=== PATIENT | female | born 1985 | race Caucasian/White ===

== ENCOUNTER 2016-08-23 07:39 | Emergency (ER) | payer OTHER ==
[2016-08-23 07:47] VITALS: RESP 16
--- NOTE | 2016-08-23 08:01 | EDPHY ---
HPI/HX/ROS/PE/MDM Narrative: CHIEF COMPLAINT: Left flank pain, abdominal pain HPI: This patient is a 30 year old female status 1.5 weeks post cystoscopy for left-sided kidney stone removal who presents to the Emergency Department complaining of left flank pain and generalized abdominal pain beginning last night and worsening over time. She has a history of multiple kidney stones with two prior cystoscopies without complication. She reports that she had been healing appropriately following the procedure until onset of pain last night. She also reports that she "doesn't feel normal" and complains of associated facial and abdominal swelling. She is able to urinate but with less urinary output than is typical for her. She denies dysuria, fever or chills, vomiting or diarrhea. She has no additional complaints. REVIEW OF SYSTEMS: Aside from elements discussed in the HPI, a comprehensive 10-point review of systems was reviewed and is negative. PMH: Kidney stones (most recent cystoscopy 08/12), pyelonephritis, uterine fibroids, ovarian cysts SOCIAL HISTORY: Lives in [place], works as a equipment mechanic in [place] PHYSICAL EXAM: General:Patient is alert, in no acute distress. ENT:Eyes are normal to inspection. ENT inspection normal. Mild facial swelling. Neck: Normal inspection. Full range of motion. Respiratory:No respiratory distress. Breath sounds normal bilaterally. Cardiovascular: Regular rate and rhythm. Strong peripheral pulses. Normal cap refill. Abdomen:Diffuse mild tenderness to palpation. There are no peritoneal signs. There are normal bowel sounds. Back: Left flank tenderness to palpation. Skin: Normal color. No rash. Warm and dry. Extremities: Normal appearance. Full range of motion. Neuro: Oriented x3. Normal motor function. Normal sensory function. ED Course: This 30-year-old female status 1.5 weeks post-cystoscopy for left-sided kidney stone presents with acute onset left flank pain with abdominal and facial swelling beginning last night. She had been healing appropriately following the procedure before onset of symptoms. She denies fever and is afebrile upon presentation. Notable on her exam is mild facial swelling, diffuse abdominal tenderness, and left flank tenderness to palpation. Will proceed with labs and UA prior to considering a CT of the abdomen and pelvis. UA results reviewed and are normal. There is no evidence of UTI. Labs reviewed and are unremarkable. I recommended that we proceed with CT of the abdomen and pelvis given recent urologic surgery. The patient refuses CT as she has an appointment with her urologist this afternoon and will undergo imaging at that time. I discussed with her customary return precautions to which she expresses understanding. She will be discharged home in good condition. - Data Points Laboratory Results: Laboratory Results 08/23/16 08:38 08/23/16 08:30 08/23/16 08/23/16 08/23/16 08:38 08:30 07:55 WBC 5.89 10^3/uL 10^3/uL (3.80-9.50) RBC 4.48 10^6/uL 10^6/uL (4.18-5.33) Hgb 12.6 g/dL g/dL (12.6-16.3) Hct 40.1 % % (38.0-47.0) MCV 89.5 fL fL (81.5-99.8) MCH 28.1 pg pg (27.9-34.1) MCHC 31.4 g/dL L g/dL (32.4-36.7) RDW 15.9 % H % (11.5-15.2) Plt Count 331 10^3/uL 10^3/uL (150-400) MPV 10.2 fL fL (8.7-11.7) Neut % (Auto) 64.7 % % (39.3-74.2) Lymph % (Auto) 20.9 % % (15.0-45.0) Alfalfa % (Auto) 9.5 % % (4.5-13.0) Eos % (Auto) 2.9 % % (0.6-7.6) Baso % (Auto) 1.7 % % (0.3-1.7) Nucleat RBC Rel Count 0.0 % % (0.0-0.2) Absolute Neuts (auto) 3.81 10^3/uL 10^3/uL (1.70-6.50) Absolute Lymphs (auto) 1.23 10^3/uL 10^3/uL (1.00-3.00) Absolute Monos (auto) 0.56 10^3/uL 10^3/uL (0.30-0.80) Absolute Eos (auto) 0.17 10^3/uL 10^3/uL (0.03-0.40) Absolute Basos (auto) 0.10 10^3/uL 10^3/uL (0.02-0.10) Absolute Nucleated RBC 0.00 10^3/uL 10^3/uL (0-0.01) Immature Gran % 0.3 % % (0.0-1.1) Immature Gran # 0.02 10^3/uL 10^3/uL (0.00-0.10) Sodium 143 mEq/L mEq/L (134-144) Potassium 5.3 mEq/L H mEq/L (3.5-5.2) Chloride 111 mEq/L H mEq/L (97-110) Carbon Dioxide 24 mEq/l mEq/l (22-31) Anion Gap 8 mEq/L mEq/L (8-16) BUN 12 mg/dL mg/dL (7-23) Creatinine 0.8 mg/dL mg/dL (0.6-1.0) Estimated GFR > 60 Glucose 84 mg/dL mg/dL (70-100) Calcium 8.8 mg/dL mg/dL (8.5-10.4) Total Bilirubin 1.1 mg/dL mg/dL (0.1-1.4) Conjugated Bilirubin 0.9 mg/dL H mg/dL (0.0-0.5) Unconjugated Bilirubin 0.2 mg/dL mg/dL (0.0-1.1) AST 52 IU/L H IU/L (14-46) ALT 16 IU/L IU/L (9-52) Alkaline Phosphatase 45 IU/L IU/L (38-126) Total Protein 6.9 g/dL g/dL (6.3-8.2) Albumin 4.1 g/dL g/dL (3.5-5.0) Specimen Hemolysis 168 Urine Color YELLOW Urine Appearance HAZY Urine pH 5.0 (5.0-7.5) Ur Specific [place] 1.023 (1.002-1.030) Urine Protein NEGATIVE (NEGATIVE) Urine Ketones NEGATIVE (NEGATIVE) Urine Blood NEGATIVE (NEGATIVE) Urine Nitrate NEGATIVE (NEGATIVE) Urine Bilirubin NEGATIVE (NEGATIVE) Urine Urobilinogen NEGATIVE EU EU (0.2-1.0) Ur Leukocyte Esterase NEGATIVE (NEGATIVE) Urine Glucose NEGATIVE (NEGATIVE) General Initial Vital Signs: Initial Vital Signs Temperature (C) 36.6 C 08/23/16 07:40 Heart Rate 89 08/23/16 07:40 Respiratory Rate 16 08/23/16 07:40 Blood Pressure 138/89 H 08/23/16 07:40 O2 Sat (%) 99 08/23/16 07:40 O2 Delivery Mode Room Air Allergies/Adverse Reactions: No Known Allergies Allergy (Verified 08/23/16 07:47) Home Medications: Medication Instructions Recorded methYLPHENIDATE HCL [Ritalin 10mg 10 mg PO 08/23/16 (*)] Departure - Departure Disposition: Home, Routine, Self-Care Clinical Impression: Facial swelling Abdominal pain Qualifiers: Abdominal location: generalized Qualified Code(s): R10.84 - Generalized abdominal pain Condition: Good Instructions: Abdominal Pain (ED), Flank Pain (ED) Additional Instructions: 1. Attend your appointment with your urologist this afternoon as scheduled. 2. Return to the Emergency Department if you experience high fever, severe abdominal pain, blood in urine, urinary incontinence, or any other serious concerns. Referrals: Brenda Jean PA [Primary Care Provider] - As per Instructions Physician Review and Approval Statement: Portions of this note were transcribed by an ED scribe. I personally performed the history, physical exam, and medical decision making; and confirm the accuracy of the information in the transcribed note.
[2016-08-23 08:10] LABS: COLOR YELLOW; LEUKOCYTE ESTERASE,URINE NEGATIVE (NEGATIVE); NITRITE,URINE NEGATIVE (NEGATIVE)
[2016-08-23 08:46] LABS: % IMMATURE GRANULYOCYTES 0.3 % (0.0-1.1); ABSOLUTE IMMATURE GRANULOCYTES 0.02 10^3/uL (0.00-0.10); ADD DIFF? NO; ADD MORPH? NO; ADD SCAN? NO; ATYPICAL LYMPHOCYTE FLAG 20 (0-99); FRAGMENT RBC FLAG 0 (0-99); HEMATOCRIT 40.1 % (38.0-47.0); HEMOGLOBIN 12.6 g/dL (12.6-16.3); LEFT SHIFT FLG 0 (0-99); LIPEMIA HEMOLYSIS FLAG 80 (0-99); MEAN CELL HEMOGLOBIN 28.1 pg (27.9-34.1); MEAN CELL HEMOGLOBIN CONCENTR. 31.4 g/dL (32.4-36.7); MEAN CELL VOLUME 89.5 fL (81.5-99.8); MEAN PLATELET VOLUME 10.2 fL (8.7-11.7); PLATELET CLUMPS FLAG 10 (0-99); PLATELET COUNT 331 10^3/uL (150-400); RED BLOOD CELL COUNT 4.48 10^6/uL (4.18-5.33); RED CELL DISTRIBUTION WIDTH 15.9 % (11.5-15.2)
[2016-08-23 08:50] LABS: ALANINE AMINOTRANSFERASE 16 IU/L (9-52); ALBUMIN 4.1 g/dL (3.5-5.0); ALKALINE PHOSPHATASE 45 IU/L (38-126); ANION GAP 8 mEq/L (8-16); ASPARTATE AMINOTRANSFERASE 52 IU/L (14-46); BILIRUBIN,TOTAL 1.1 mg/dL (0.1-1.4); BILIRUBIN-CONJUGATED 0.9 mg/dL (0.0-0.5); BILIRUBIN-UNCONJUGATED 0.2 mg/dL (0.0-1.1); CALCIUM 8.8 mg/dL (8.5-10.4); CARBON DIOXIDE 24 mEq/l (22-31); CHLORIDE 111 mEq/L (97-110); CREATININE 0.8 mg/dL (0.6-1.0); GLOMERULAR FILTRATION RATE > 60; GLUCOSE 84 mg/dL (70-100); POTASSIUM 5.3 mEq/L (3.5-5.2); SODIUM 143 mEq/L (134-144); SPECIMEN HEMOLYSIS 168; TOTAL PROTEIN 6.9 g/dL (6.3-8.2)
[2016-08-23 09:28] VITALS: BP 115/73; PULSE 70; TEMP 98.1; O2SAT 96
== END 2016-08-23 09:27 | disposition home or self-care (01) ==
DX: R10.84 Generalized abdominal pain (principal); R22.0 Localized swelling, mass and lump, head

== ENCOUNTER 2018-08-15 13:37 | Emergency (ER) | payer OTHER ==
[2018-08-15 13:44] VITALS: BP 138/95
--- NOTE | 2018-08-15 13:52 | EDPHY ---
H & P Stated Complaint: R forearm spider bite Time Seen by Provider: 08/15/18 13:51 HPI/ROS: CHIEF COMPLAINT: Referred to ED for evaluation of spider bite to consider " anti venom" HISTORY OF PRESENT ILLNESS: The patient was seen at urgent care after she noticed a small bite on her right forearm. She was told by the urgent care physician that she may have been bitten by a black spider in that she needed to come to the emergency department to get antivenom. The patient denies any systemic symptoms of myalgias, severe pain, high fever, vomiting or diarrhea. The patient was uncertain when the bite even developed. She woke up with it this morning. The patient has no additional complaints. She was prescribed Keflex at the urgent care. REVIEW OF SYSTEMS: A comprehensive 10 point review of systems is otherwise negative aside from elements mentioned in the history of present illness. Source: Patient Exam Limitations: No limitations - Personal History Current Tetanus/Diphtheria Vaccine: Yes Current Tetanus Diphtheria and Acellular Pertussis (TDAP): Yes Tetanus Vaccine Date: < 10 YEARS - Medical/Surgical History Hx Asthma: No Hx Chronic Respiratory Disease: No Hx Diabetes: No Hx Cardiac Disease: No Hx Renal Disease: No Hx Cirrhosis: No Hx Alcoholism: No Hx HIV/AIDS: No Hx Splenectomy or Spleen Trauma: No Other PMH: PMH: ovarian cyst; uti; uterine fibroids. kidney stones - Social History Smoking Status: Current every day smoker - Physical Exam Exam: General Appearance: Alert, no distress Eyes: Pupils equal and round no pallor or injection ENT, Mouth: Mucous membranes moist Respiratory: There are no retractions, lungs are clear to auscultation Cardiovascular: Regular rate and rhythm Gastrointestinal: Abdomen is soft and nontender, no masses, bowel sounds normal Neurological: Normal motor exam Skin: Small 1 cm x 1 cm area of redness on the right forearm consistent with a likely spider bite. No surrounding lymphangitis. No forearm tenderness. No clinical evidence of necrotizing fasciitis or compartment syndrome. Musculoskeletal: Neck is supple nontender Extremities: symmetrical, full range of motion Constitutional: Initial Vital Signs Temperature (C) 36.8 C 08/15/18 13:42 Heart Rate 81 08/15/18 13:42 Respiratory Rate 16 08/15/18 13:42 Blood Pressure 138/95 H 08/15/18 13:42 O2 Sat (%) 97 08/15/18 13:42 O2 Delivery Mode Room Air Allergies/Adverse Reactions: No Known Allergies Allergy (Verified 08/15/18 13:41) Home Medications: Medication Instructions Recorded methYLPHENIDATE HCL [Ritalin 10mg 10 mg PO 08/23/16 (*)] Medical Decision Making ED Course/Re-evaluation: Patient presents the ED with a minor bite to her forearm without symptoms of systemic toxicity. I told the patient that I doubt it was a black . She does not meet indication for anti venom even if it was. The patient is on Keflex which is of questionable benefit but had been prescribed by urgent care. The patient has been reassured there is no indication for antivenom will be discharged from the emergency department. Departure - Departure Disposition: Home, Routine, Self-Care Clinical Impression: Spider bite Condition: Good Instructions: Insect Bite or Sting (ED) Additional Instructions: 1. Take Ibuprofen or Motrin 600 mg by mouth three times a day. 2. Antibiotics as directed 3. Return to the emergency department for any markedly worsening symptoms, streaking gonzalez up the arm, marked tenderness or other concerns.
== END 2018-08-15 14:12 | disposition home or self-care (01) ==
DX: S50.861A Insect bite (nonvenomous) of right forearm, initial encounter (principal); W57.XXXA Bitten or stung by nonvenomous insect and other nonvenomous arthropods, initial encounter